=== PATIENT | male | born 1960 | race Caucasian/White ===

== ENCOUNTER 2020-07-14 14:51 | Inpatient (IN) | payer BC ==
[~2020-07-14] VITALS: Ht 177.8 cm; Wt 81.5 kg
[2020-07-14] VITALS (160 sets, daily range): BP systolic 104–133; BP diastolic 64–86; PULSE 52–68; TEMP 96.7–97.8; O2SAT 98–100
[2020-07-14 15:28] LABS: BASO # 0.1 (0.0-0.2); EOS # 0.1 (0.0-0.7); EOS % 1.5 % (0-4.0); GRAN # 3.7 (1.4-6.5); GRAN % 61.8 % (42.2-75.2); HEMATOCRIT 40.7 % (42.0-52.0); HEMOGLOBIN 14.6 g/dl (13.5-18.0); LYMPH # 1.4 (1.2-3.4); LYMPH % 23.9 % (20.0-51.0); MEAN CELL VOLUME 94 fl (80.0-100.0); MEAN CORPUSCULAR HEMOGLOBIN 34 pg (27.0-31.0); MEAN CORPUSCULAR HGB CONC 36 g/dl (33.0-37.0); MEAN PLATELET VOLUME 8.4 fl (7.4-10.4); MONO # 0.7 (0.1-0.6); MONO % 11.5 % (1.7-9.3); PLATELET COUNT 284 K/mm3 (130-400); RED BLOOD COUNT 4.35 M/mm3 (4.20-5.60); REDCELL DISTRIBUTION WIDTH-CV 12.4 % (11.5-14.5)
[2020-07-14 15:32] LABS: CALCIUM 9.9 mg/dL (8.4-10.2); CREATININE, serum 0.85 (0.66-1.25); POTASSIUM 3.9 mmol/L (3.4-5.0)
[2020-07-14] MEDS ORDERED: ZOLOFT 25MG25 MG PO (15:58)
[2020-07-14] MEDS ORDERED: ZESTRIL30 MG (15:59)
[2020-07-14] MEDS ORDERED: ZOCOR 10MG10 MG (16:00)
--- NOTE | 2020-07-14 17:33 | NUR ---
PT INTUBATED AT 1656, 7.0ETT, 24CM @ LIP. INITIAL SETTINGS, VT 450, RR 18, I-TIME 1, PEEP 5. DIFFICULT INTUBATION WITH 3RD ATTEMPT BEING SUCCESSFUL. PT PLACED ON VENTILATOR AND AWAITING TRANSPORT TO ICU.
--- NOTE | 2020-07-14 18:00 | NUR ---
REPORT RECEIVED FROM LISA HAGEN FROM ED, AWAITING PATIENT ARRIVAL TO ICU ROOM 1 AT THIS TIME.
[2020-07-14] MEDS ORDERED: ZOLOFT 100MG100 MG PO (18:03)
[2020-07-14] MEDS ORDERED: PERCOCET 325 MG1 TA2 (18:04)
[2020-07-14] MEDS ORDERED: ZOCOR 10MG10 MG PO (18:04)
[2020-07-14] MEDS ORDERED: PRINZIDE 25 MG-1 TAB PO (18:04)
[2020-07-14 19:57] LABS: ARTERIAL BLD GAS O2 SATURATION 98.5 % (92-100); ARTERIAL BLD GAS TCO2 CT 23.8; ARTERIAL BLOOD GAS BASE EXCESS -0.4 (-2-2); ARTERIAL BLOOD GAS HCO3 22.8 meq/L (22-26); ARTERIAL BLOOD GAS PCO2 33.2 mmHg (35-45); ARTERIAL BLOOD GAS PO2 133.5 mmHg (80-100); ARTERIAL BLOOD GAS pH 7.46 (7.35-7.45)
[2020-07-14 21:45] LABS: PH 5 (5-8); SQUAMOUS EPITHELIAL None Seen /hpf; URINE APPEARANCE Clear; URINE BACTERIA None Seen /hpf; URINE BILIRUBIN Negative (NEGATIVE); URINE BLOOD Negative (NEGATIVE); URINE COLOR Yellow; URINE GLUCOSE Negative (NEGATIVE); URINE KETONE 1+ (NEGATIVE); URINE LEUKOCYTE ESTERASE Negative (NEGATIVE); URINE NITRATE Negative (NEGATIVE); URINE PROTEIN(semi-quant) Negative (NEGATIVE); URINE UROBILINOGEN Negative (NEGATIVE)
[2020-07-14 22:32] LABS: COLLECTION METHOD CLEAN CATCH
[2020-07-15] VITALS (550 sets, daily range): BP systolic 96–123; BP diastolic 61–67; PULSE 52–65; TEMP 97.3–97.8; O2SAT 86–100
--- NOTE | 2020-07-15 01:12 | NUR ---
PT CURRENTLY RESTING IN BED INTUBATED AND SEDATED ON PROPOFOL AND FENTANYL FOR PAIN MANAGEMENT. VSS AT THIS TIME. RESTRAINS AND CANTOR REMAIN IN PLACE. PT TOLERATING THE VENT AND SEDATION VACTION WILL BE CONDUCTED TOWARDS THE MORNING FOR POTENTIAL EXTUBATIONS TOMORROW. WILL CONTINUE TO MONITOR PT STATUS AND UPDATE PROVIDERS WITH ANY CHANGES.
[2020-07-15 05:25] LABS: BASO % 0.3 % (0.0-2.0); GRAN # 3.5 (1.4-6.5); GRAN % 88.7 % (42.2-75.2); HEMATOCRIT 36.9 % (42.0-52.0); HEMOGLOBIN 12.9 g/dl (13.5-18.0); LYMPH # 0.3 (1.2-3.4); LYMPH % 8.5 % (20.0-51.0); MEAN CELL VOLUME 96 fl (80.0-100.0); MEAN CORPUSCULAR HEMOGLOBIN 34 pg (27.0-31.0); MEAN CORPUSCULAR HGB CONC 35 g/dl (33.0-37.0); MEAN PLATELET VOLUME 8.4 fl (7.4-10.4); MONO # 0.1 (0.1-0.6); PLATELET COUNT 211 K/mm3 (130-400); RED BLOOD COUNT 3.85 M/mm3 (4.20-5.60); REDCELL DISTRIBUTION WIDTH-CV 12.6 % (11.5-14.5)
[2020-07-15 05:28] LABS: ARTERIAL BLD GAS O2 SATURATION 98.5 % (92-100); ARTERIAL BLD GAS TCO2 CT 25.7; ARTERIAL BLOOD GAS BASE EXCESS 0.4 (-2-2); ARTERIAL BLOOD GAS HCO3 24.5 meq/L (22-26); ARTERIAL BLOOD GAS PCO2 37.9 mmHg (35-45); ARTERIAL BLOOD GAS pH 7.43 (7.35-7.45)
[2020-07-15 05:30] LABS: ARTERIAL BLOOD GAS PO2 125.3 mmHg (80-100)
[2020-07-15 05:36] LABS: CALCIUM 8.7 mg/dL (8.4-10.2); CREATININE, serum 0.56 (0.66-1.25)
--- NOTE | 2020-07-15 05:59 | NUR ---
PT IS NOT ON WEAN TRIAL HE DOES NOT QUALIFY PT ON DOCUMENTED SETTINGS ASHOK WELL WITH NO DISTRESS NOTED AT THIS TIME
--- NOTE | 2020-07-15 06:18 | NUR ---
PT AWAKE TO VOICE, F/C, ABLE TO SHAKE HEAD NO TO PAIN, ANSWERS QUESTIONS APPROPRIATELY. TEACHING RE; VENT, FOLY, RESTRAINS, AND CURRENT MEDICATION CONDUCTED AND PT ABLE TO ACKLOWLEDGE UNDERSTANDING. WILL CONTINUE TO MONITOR PT STATUS AND UPDATE PROVIDERS NEENED.
--- NOTE | 2020-07-15 10:10 | NUR ---
Sw made contact with the patient's Son Jude Aguilar. . Son reports that the patient resides locally in town but denies knowing his medical information or where he obtains medications. Son reports that the patient was driving to [facility] to see a physician but does not know who. Son also reports that he was drving to [facility] to obtain medications, will attempt to gather more information from the patient. Patient currently getting picc placement lenard burt. Patient is able to use cell phone and texted on it.
[2020-07-15 11:23] LABS: MAGNESIUM 2.1 mg/dL (1.6-2.3); PHOSPHOROUS 3.9 mg/dL (2.5-4.5)
--- NOTE | 2020-07-15 12:20 | NUR ---
Chaplain mckeon for patient through the door.
--- NOTE | 2020-07-15 19:13 | NUR ---
Report given to LISA Mendoza. Care relinquished at this time.
--- NOTE | 2020-07-15 19:20 | NUR ---
Received report from LISA Manning. Patient resting quietly in bed. Vitals within normal limits. Patient denies any pain at this time. Will continue to monitor.
[2020-07-16] VITALS (554 sets, daily range): BP systolic 101–149; BP diastolic 63–652; PULSE 49–101; TEMP 97.1–98.6; O2SAT 68–100
--- NOTE | 2020-07-16 05:00 | NUR ---
On sedation, patient is alert and following all verbal commands. Patient opens eyes spontaneously and is able to answer yes/no questions appropriately by shaking or nodding his head. No sedation vacation performed at this time.
[2020-07-16 05:38] LABS: MEAN CELL VOLUME 99 fl (80.0-100.0); MEAN CORPUSCULAR HEMOGLOBIN 34 pg (27.0-31.0); MEAN CORPUSCULAR HGB CONC 34 g/dl (33.0-37.0); MEAN PLATELET VOLUME 8.9 fl (7.4-10.4); PLATELET COUNT 210 K/mm3 (130-400); RED BLOOD COUNT 3.53 M/mm3 (4.20-5.60); REDCELL DISTRIBUTION WIDTH-CV 13.2 % (11.5-14.5)
[2020-07-16 05:52] LABS: CALCIUM 8.9 mg/dL (8.4-10.2); CREATININE, serum 0.55 (0.66-1.25); POTASSIUM 3.8 mmol/L (3.4-5.0)
[2020-07-16 05:59] LABS: ARTERIAL BLD GAS O2 SATURATION 98.3 % (92-100); ARTERIAL BLD GAS TCO2 CT 32.5; ARTERIAL BLOOD GAS BASE EXCESS 6.2 (-2-2); ARTERIAL BLOOD GAS HCO3 31.1 meq/L (22-26); ARTERIAL BLOOD GAS PCO2 45.8 mmHg (35-45); ARTERIAL BLOOD GAS PO2 119.3 mmHg (80-100); ARTERIAL BLOOD GAS pH 7.45 (7.35-7.45)
[2020-07-16 06:27] LABS: BAND 4 % (0-10); LYMPHOCYTE 3 % (20.0-51.0); NEUTROPHILS 91 % (42.0-75.2)
[2020-07-16 06:28] LABS: PLATELET ESTIMATE NORMAL (NORMAL)
--- NOTE | 2020-07-16 07:28 | NUR ---
Report given to LISA Manning.
--- NOTE | 2020-07-16 09:24 | NUR ---
PT EXTUBATED TO ROOM AIR, SOME SWELLING OF THE TONGUE AND MOUTH STIOLL PRESENT, HOWEVER, SUBSTANTIALLY LESS THEN PT PRESENTED WITH IN THE ED. NO COMPLAINTS OF SHORTNESS OF BREATH OR DIFFICULTY BREATHING.
--- NOTE | 2020-07-16 19:00 | NUR ---
Received report from LISA Manning.
--- NOTE | 2020-07-16 19:10 | NUR ---
Report given to LISA Mendoza.
[2020-07-17] VITALS (209 sets, daily range): BP systolic 131–141; BP diastolic 73–76; PULSE 67–78; TEMP 97.6–98; O2SAT 74–100
--- NOTE | 2020-07-17 04:00 | NUR ---
Assessment complete. Pt is AXO X3, denies having any pain at this time. MADDISON PICC line has good blood return and remains free of complications. Pt is resting quietly in the bed at this time and he denies further needs. Call light within reach.
[2020-07-17] MEDS ORDERED: BENADRYL50 MG PO (08:40)
[2020-07-17] MEDS ORDERED: PEPCID 20MG TAB20 MG PO (08:41)
[2020-07-17] MEDS ORDERED: PROAIR HFA0.09 MG/AC IH (08:41)
[2020-07-17] MEDS ORDERED: PREDNISONE10 MG PO (08:43)
--- NOTE | 2020-07-17 10:34 | NUR ---
Patient discharging home, discussed discharge orders and instructions, isntructed to follow up with PCP in 1 week/ he sees a Doc in [place] as that is where he lived and said he was going to work on getting set up with a new PCP here in [place] as soon as he got home today, PICC removed by [facility], discussed meds with patient, scritps for pepcid/benadry/prednisone/albuterol sent to pharmacy for him and education provided, instructed to discontinue taking Lisionpril at home in any capacity/ he verbalized understanding of yordy, leaving alone and driving himeself home, I escorted him out the door
--- NOTE | 2020-07-17 11:10 | NUR ---
Olivia cath and PICC line removed prior to discharge home
--- NOTE | 2020-07-17 11:17 | NUR ---
The patient discharged home today, 07/17. He is independent has no needs at this time.
== END 2020-07-17 10:36 | disposition home or self-care (01) | DRG 915 ==
LOC: COL.ER 14:51 → ICU 17:14
PROVIDERS: Internal Medicine Pulmonary Disease; Nurse Practitioner Family; Physician Assistant; Student in an Organized Health Care Education/Training Program; ADMIT Internal Medicine
PROC: 02HV33Z Insertion of Infusion Device into Superior Vena Cava, Percutaneous Approach (ICD-10-PCS; 2020-07-15)
PROC: 0BH17EZ Insertion of Endotracheal Airway into Trachea, Via Natural or Artificial Opening (ICD-10-PCS; principal; 2020-07-17)
PROC: 5A1935Z Respiratory Ventilation, Less than 24 Consecutive Hours (ICD-10-PCS; 2020-07-17)
DX: T78.3XXA Angioneurotic edema, initial encounter (principal); J96.01 Acute respiratory failure with hypoxia; E87.1 Hypo-osmolality and hyponatremia; E78.5 Hyperlipidemia, unspecified; F32.9 Major depressive disorder, single episode, unspecified; I10 Essential (primary) hypertension; R73.9 Hyperglycemia, unspecified; T38.0X5A Adverse effect of glucocorticoids and synthetic analogues, initial encounter
CPT/HCPCS: 99223-AI; 99232-AI; 99233-AI; 99239; C1751; C1892; J0171; J0330; J1200; J1650; J2704; J2920; J2930; J3010; J7030; J7120; J7512